=== PATIENT | female | born 1930 | race Caucasian/White ===

== ENCOUNTER 2017-05-05 21:11 | Inpatient (IN) | payer MEDICARE ==
[2017-05-05 21:58] LABS: Bilirubin Negative (Negative); Blood, Urine Negative (Negative); Glucose, Urine (Dipstick) 500 mg/dL (Negative); Ketone, Urine Negative (Negative); Nitrite Negative (Negative); Protein, Urine (Dipstick) 30 mg/dL (Neg-Trace); Urobilinogen 0.2 mg/dL (0.2-1.0)
[2017-05-05 22:01] LABS: Bacteria/HPF None Seen HPF (None Seen); Hyaline Casts/LPF 4-6 HYALINE CAST LPF (0-3 Hyaline); Squamous Epithelial 0-3 HPF (0-3); WBC/HPF 21-50 HPF (0-3)
[2017-05-05 22:09] LABS: #Monocytes 1.8 thou/uL (0.11-0.59); #Neutrophils 12.9 thou/uL (1.40-6.50); %Basophils 0.1 % (0.0-1.0); %Eosinophils 0.3 % (0.0-10.0); %Lymphocytes 6.1 % (21.0-51.0); %Monocytes 11.4 % (0.0-10.0); Hematocrit 41.5 % (36.0-47.0); Mean Platelet Volume 6.5 fL (7.4-10.4); Red Blood Cell (RBC) Count 4.38 mill/uL (4.20-5.40); White Blood Cell (WBC) Count 15.6 thou/uL (4.8-10.8)
[2017-05-05 22:15] LABS: Prothrombin Time 14.6 SEC (12.0-14.7)
--- NOTE | 2017-05-05 22:20 | RAD ---
UPRIGHT PORTABLE CHEST ONE VIEW: History: 86-year-old female with chest pain. Comparison: 02-18-17 FINDINGS: Rotation to the left. Atherosclerosis or the aorta. Loops recorder overlying the left chest. Heart s ize is minimally enlarged. No confluent pneumonia, overt edema, or pleural effusion. IMPRESSION: Stable mild cardiomegaly. No acute process. POS: [facility]
[2017-05-05 22:33] LABS: ALT (SGPT) 29 U/L (8-55); AST (SGOT) 38 U/L (5-34); Alkaline Phosphatase 109 U/L (40-150); Anion Gap 17 mmol/L (10-20); BUN (Urea Nitrogen) 28 mg/dL (9.8-20.1); CK (CPK) 226 U/L (29-168); Calc. Creatinine Clearance 0 mL/min (70-130); Calcium 9.8 mg/dL (7.8-10.44); Carbon Dioxide 22 mmol/L (23-31); Chloride 101 mmol/L (98-107); Estimated GFR-MDRD 54; Globulin 3.9 g/dL (2.4-3.5); Lipase 19 U/L (8-78)
[2017-05-05] MEDS ORDERED: cefTRIAXone\\ROCEPHIN 1 GM VIAL ONE (23:16)
[2017-05-05 23:23] LABS: Lactic Acid - Sepsis 2.8 mmol/L (0.5-2.2)
--- NOTE | 2017-05-05 23:55 | CT ---
BRAIN CT WITHOUT IV CONTRAST: History: 86-year-old female with altered mental status. Comparison: 02-19-17 FINDINGS: Atrophy and chronic white matter ischemic changes are again noted and appear stable. No focal mass o r acute hemorrhage. Sinuses and mastoids are clear. IMPRESSION: Atrophy and chronic white matter ischemic change. No mass or bleed. Stable from prior study. POS: [facility]
[2017-05-06] MEDS ORDERED: Acetaminophen 500 MG TAB ONE (00:13)
[2017-05-06] MEDS ORDERED: cefTRIAXone\\ROCEPHIN 1 GM VIAL ONE (00:13)
[2017-05-06] MEDS ORDERED: Ondansetron HCl/PF 4 MG/2 ML Vial IVP PRN ×3 (01:56→02:36)
[2017-05-06] MEDS ORDERED: Ondansetron ODT 4 MG TAB SL PRN (01:56)
[2017-05-06] MEDS ORDERED: Sodium Chloride 0.9% 1,000 ML IV SCH (02:00)
[2017-05-06] MEDS ORDERED: Loratadine 10 MG TAB PO PRN (02:36)
[2017-05-06] MEDS ORDERED: Calcium Carbonate 500 MG ChewTAB PO PRN (02:36)
[2017-05-06] MEDS ORDERED: Mag-Al 1200 mg/1200 mg/30 ML UDCUP PO PRN (02:36)
[2017-05-06] MEDS ORDERED: hydrALAZINE 20 MG/ML VIAL SLOW IVP PRN (02:36)
[2017-05-06] MEDS ORDERED: Nitroglycerin 0.4 MG TAB (25 Tab Bottle) SL PRN (02:36)
[2017-05-06] MEDS ORDERED: Acetaminophen 325 MG TAB PO PRN ×2 (02:36→18:52)
[2017-05-06] MEDS ORDERED: Benzonatate 100 MG CAP PO PRN (02:36)
[2017-05-06] MEDS ORDERED: Senokot 8.6 MG TAB PO PRN ×2 (02:36)
[2017-05-06] MEDS ORDERED: cloNIDine 0.1 MG TAB PO PRN (02:36)
[2017-05-06] MEDS ORDERED: Diabetic Tussin 200 MG/10 ML UDCUP PO PRN (02:36)
[2017-05-06] MEDS ORDERED: Bisacodyl 5 MG TAB PO PRN ×2 (02:36)
[2017-05-06 02:56] LABS: #Eosinphils 0.1 thou/uL (0.0-0.7); #Lymphocytes 1.2 thou/uL (1.20-3.40); #Monocytes 1.8 thou/uL (0.11-0.59); #Neutrophils 9.5 thou/uL (1.40-6.50); %Basophils 0.2 % (0.0-1.0); %Eosinophils 0.5 % (0.0-10.0); %Lymphocytes 9.8 % (21.0-51.0); Hematocrit 34.2 % (36.0-47.0); Mean Platelet Volume 6.5 fL (7.4-10.4); Red Blood Cell (RBC) Count 3.62 mill/uL (4.20-5.40); White Blood Cell (WBC) Count 12.6 thou/uL (4.8-10.8)
[2017-05-06 03:20] LABS: Anion Gap 12 mmol/L (10-20); BUN (Urea Nitrogen) 22 mg/dL (9.8-20.1); Calc. Creatinine Clearance 0 mL/min (70-130); Calcium 8.7 mg/dL (7.8-10.44); Carbon Dioxide 22 mmol/L (23-31); Chloride 107 mmol/L (98-107); Estimated GFR-MDRD 74
[2017-05-06 03:23] VITALS: BMI 22.4
[2017-05-06] MEDS: Sodium Chloride 0.9% 1,000 ML IV SCH ×2 (03:59→12:15)
--- NOTE | 2017-05-06 06:08 | HP ---
DATE OF ADMISSION: 05/06/2017 PRIMARY CARE PHYSICIAN: Lashanda Alvarado M.D. CHIEF COMPLAINT: Frequent falls, worsening weakness, and confusion. HISTORY OF PRESENT ILLNESS: Ms. Gallegos is a very pleasant 86-year-old female with past medical his tory of frequent falls, cardiac arrhythmia in the form of atrial fibrillation/flutter, dyslipidemia, hypertension, and sacral insufficiency fractures, who presented to the emergency room with the abov e-mentioned complaint. History is mainly obtained by the patient herself who is a poor historian gi jeremiah the confusion. No family is available at the bedside at this time. The case was discussed with the admitting ER physician in detail and electronic medical records have been reviewed. The patien jania was last admitted to our facility in 02/2017 for repeated falls and was found to have non-ST eleva tion IN. At that time, she underwent a cardiac catheterization which did not show significant coron gertrudis artery disease. She had an echocardiogram done, which showed improvement in her ejection fracti on from 25% to 55%. She was found to have atrial flutter at that time and consideration was given o n LifeVest/AICD/amiodarone. It is unclear as to what was the follow up for that. Nevertheless, the patient was brought into the emergency room today by her family. They reported in creased confusion beginning last Saturday. The patient was prescribed ciprofloxacin Saturday night and was started on Macrobid yesterday, but she became more confused and weak. No focal deficits were no ticed. She has also been falling more and more frequently with reported 4 falls in the last 5 days. She lives in the independent facility at [facility] as per the patient. Her most recent fall was approximately 1745 hours last evening. Upon presentation, her blood pressure was 120/61 with a pulse of 85 and oxygen saturation 95% on nereida m air. A 12-lead EKG shows normal sinus rhythm at 89 beats per minute with nonspecific ST segment a nd T-wave abnormality. Lumbar spinal CT showed fracture of the L3 transverse process and body and b ilateral sacral insufficiency fractures. Extensive fracture of right and left sacral ala also notic ed likely insufficiency fractures. Her CT scan of the brain was unremarkable. There is no hemorrha ge or acute infarction and her chest x-ray did not have any infiltrate or pulmonary edema. Further workup included a blood work which showed WBCs at 15.6, with lactic acid of 2.8 and creatinine kinas e of 226. Cardiac enzymes are unremarkable. Her urinalysis shows wbc's and leukocyte esterase. Mitali roldan was prescribed vancomycin and Rocephin for possible sepsis and UTI and is now being admitted to te lemetry unit for further evaluation. PAST MEDICAL HISTORY: 1. Frequent falls. 2. Dyslipidemia. 3. Hypertension. 4. History of nonischemic cardiomyopathy with improved cardiac function on the echo done in 02/2017 . 5. History of cardiac arrhythmia. 6. Coronary artery disease. PAST SURGICAL HISTORY: Hysterectomy. SOCIAL HISTORY: No history of drug, tobacco, or alcohol abuse. The patient is a retired nurse. Jessica roldan patient's daughter is an ER physician in [place]. She lives in the independent facility [facility]. ALLERGIES: Include LATEX, MEPERIDINE, and SULFONAMIDES. FAMILY HISTORY: Mom had hypertension, in her 90s and father of colon cancer at 86. CURRENT MEDICATIONS: As per the ER record and these further need to be confirmed. The patient take s lisinopril 5 mg b.i.d. and Coreg 6.25 mg b.i.d. PHYSICAL EXAMINATION: VITAL SIGNS: Most recent vital signs include blood pressure 183/74, pulse of 100, respirations 16, temperature 98.6, saturating 96% on room air. GENERAL: Lying comfortably in bed, no acute distress, awake, alert, oriented at least to self and p lace. HEENT: Mucous membrane is slightly dry. No oropharyngeal exudate or erythema. Head is normocephal ic, atraumatic. Pupils are equal, reactive to light and accommodation. Extraocular movements are i ntact. NECK: Supple without any lymphadenopathy, JVD, or bruit. CHEST: Clear to auscultation without any wheezing, rales, or rhonchi. CARDIOVASCULAR: Rate and rhythm is regular without any murmur, rubs, or gallops. ABDOMEN: Soft, nontender, nondistended with positive bowel sounds. EXTREMITIES: Free of any cyanosis, clubbing, or edema. NEUROLOGIC: Largely nonfocal. The patient appears somewhat confused and answers tangentially and h as to be redirected. Otherwise, no focal neurological deficits. SKIN: Shows abrasion in the lumbar spinal region. VASCULAR: +2 pedal pulses bilaterally. SKIN: Free of any rashes or bruises. Feels warm and dry to touch. PSYCHIATRIC: Normal affect. LABORATORY DATA AND X-FINDINGS: A 12-lead EKG by my review as per HPI. Lumbar spinal CT showed chr onic fractures in L3 as well as a sacral ala. Chest x-ray by my review has no pulmonary effusion, e estuardo, or infiltrate. CBC shows WBCs of 15.6 with 82% neutrophils, otherwise, unremarkable. Serum c hemistries show bicarbonate 22, BUN 29, creatinine 0.98, glucose 193, lactic acid 2.8, AST 38, creat inine kinase 226, and otherwise, unremarkable. Cardiac enzyme is normal. Urinalysis shows 21 to 50 wbc's and small leukocyte esterase. IMPRESSION AND PLAN: 1. Urinary tract infection. The patient will be treated with broad-spectrum IV antibiotics until s epsis is ruled out. Urine culture and blood cultures have been sent. We will repeat lactic acid an d labs in the morning. Continue with IV fluids as the patient appears somewhat dehydrated. 2. Frequent falls. We will have occupational therapy and physical therapy to evaluate the patient. The exact etiology is unclear, but the patient reports that they normally happen when she is not a ble to open her walker at the bedside in time. 3. History of coronary artery disease. At this time, we will continue her DULCE inhibitor as well as beta-karina. She will continue to follow with her primary clock repairer, Dr. Friend, as an outpa tient. 4. Hypertension. Resume her home medications, monitor blood pressure and heart rate closely. 5. Dyslipidemia. Continue home medications. 6. CODE STATUS: Unknown. At this time, the patient is not able to provide me with a firm answer, this further needs to be addressed in the morning. 7. History of ischemic cardiomyopathy with recovery of cardiac function on most recent echocardiogr am. 8. Add p.r.n. medication order. 9. Deep venous thrombosis and gastrointestinal prophylaxis. The patient is currently being admitted to the telemetry unit for urinary tract infection and rule o ut sepsis. Further management will depend upon her clinical course. Estimated length of stay at [facility] 2 to 3 midnights.
--- NOTE | 2017-05-06 07:12 | CT ---
LUMBAR SPINE CT SCAN WITHOUT IV CONTRAST: Date: 05/05/17 HISTORY: 86-year-old female with low back pain following an injury. FINDINGS: There is very markedly severe bony demineralization. There appears to be a fracture of the left L3 t ransverse process. There is also a minimally displaced horizontal fracture through the L3 vertebral body. This could possibly extend into the left pedicle. There is also vertical height loss of the L2 vertebral body which has a more indeterminate appearance as far as age and could be acute, although could possibly be old. There is severe disc osteophytosis and facet arthrosis, particularly of the lower lumbar spine, with variable severity central canal, lateral recess, and foraminal stenosis, pa rticularly at L3-L4 and L4-L5. There are bilateral sacral fractures which have the appearance of ins ufficiency type fractures, although these do appear to be somewhat displaced. IMPRESSION: Horizontal moderately displaced fracture through the superior aspect of the L3 vertebral body, possi ju extending into the left pedicle with a nondisplaced fracture of the left L3 transverse process. This could possibly represent a partial chance-type fracture. Extensive comminuted fractures of both right and left sacral ala with some displacement, possibly related to severe insufficiency type fra ctures. Vertical height loss of the L2 vertebral body consistent with mild compression fracture, age -indeterminate. Severe spondylosis with up to severe central canal, lateral recess, and foraminal st enosis. POS: [facility]
[2017-05-06] MEDS ORDERED: FLU VACC TS2017-18 (>65YR) 0.5 ML SYRINGE IM ONE (09:00)
[2017-05-06] MEDS ORDERED: Famotidine 20 MG TAB PO SCH (09:00)
[2017-05-06] MEDS: traMADol HCl 50 MG TAB PO PRN ×2 (09:12→20:59)
[2017-05-06] MEDS: Famotidine 20 MG TAB PO SCH (09:13)
[2017-05-06] MEDS: Enoxaparin Sodium 40 MG/0.4 ML SYRINGE SC SCH (09:13)
--- NOTE | 2017-05-06 11:47 | CON ---
DATE OF CONSULTATION: 05/06/2017 HISTORY OF PRESENT ILLNESS: The patient is an 86-year-old female with a past medical history of frequent falls, hypertension, hyperlipidemia, cardiomyopathy, cardiac arrhythmia, coronary artery disease who presented to the emergency department for additional falls and confusion. She was complaining of back pain at that time, therefore CT of the lumbar spine was done. CT of the lumbar spine revealed an L2 compression deformity, also an L3 vertebral body fracture which extends into the left pedicle and bilateral sacral insufficiency fractures. These fractures all appeared to be age indeterminate on the CT; however, the patient does have new and worsening back pain. Her further medical workup also revealed a urinary tract infection and the patient was admitted to the Medicine Service for further management of this condition and the Neurosurgery Service was consulted for evaluation of her vertebral fractures. I am seeing the patient at this time, she has no pain at this time. She denies leg weakness, numbness, tingling, or bowel or bladder dysfunction. PAST MEDICAL HISTORY: Frequent falls, hypertension, hyperlipidemia, cardiomyopathy, cardiac arrhythmia, coronary artery disease. PAST SURGICAL HISTORY: Hysterectomy. SOCIAL HISTORY: The patient does not smoke, drink or use any drugs. She lives at [facility]. ALLERGIES: The patient's allergies include LATEX, MEPERIDINE, SULFONAMIDES. FAMILY HISTORY: Family history of hypertension. PHYSICAL EXAMINATION: GENERAL: The patient is sitting comfortably in the bed in no acute distress. HEAD: Normocephalic, atraumatic. EYES: PERRLA. Extraocular movements intact. Sclerae white. ENT: Oral mucosa moist, pink, intact. NECK: Nontender to palpation. Free active range of motion, no meningismus or nuchal rigidity. CARDIOVASCULAR: Regular rate and rhythm. LUNGS: The patient is breathing comfortably. No evidence dyspnea, symmetric chest expansion. MUSCULOSKELETAL: The patient has good muscle tone in the bilateral upper and lower extremities, active range of motion of bilateral upper and lower extremities. NEUROLOGIC: The patient is slightly confused. She is off of topic when answering my questions. No reflex asymmetry. Negative Marks's, negative clonus. ASSESSMENT: Multiple falls with L2 compression fracture, L3 vertebral body fracture extending into the left pedicle and bilateral sacral insufficiency fractures. PLAN: Our plan will be to order a TLSO brace. Given the patient's age and comorbidities, conservative management appears to be the best option at this time. I do not suspect any neurosurgical intervention. We will plan to follow up with the patient in 4 weeks with a repeat set of x-rays at that time. I have discussed this plan with the family who is amenable to this plan. I have also discussed the patient's presentation, exam and imaging with Dr. Gresham and he also is in agreement with this plan. The patient is to wear the TLSO brace for any out of bed activities. It can be taken off briefly to shower. Please reach out to Neurosurgery Service for additional questions or concerns. ARIANA
[2017-05-06] MEDS ORDERED: diphenhydrAMINE 12.5 MG/5 ML UDCUP PO PRN (18:53)
[2017-05-06] MEDS: Melatonin 3 MG TAB PO SCH (20:26)
[2017-05-07] MEDS: Sodium Chloride 0.9% 1,000 ML IV SCH ×3 (00:24→20:37)
[2017-05-07] MEDS: Vancomycin HCl 750 MG in Sodium Chloride 0.9% 250 ML 250 ML IVPB SCH (00:24)
[2017-05-07] MEDS: Carvedilol 6.25 MG TAB PO SCH ×2 (08:30→17:21)
[2017-05-07] MEDS: Aspirin 81 mg Enteric Coated Tablet PO SCH (08:30)
[2017-05-07] MEDS: Ubidecarenone 50 MG CAP PO SCH (08:30)
[2017-05-07] MEDS: Famotidine 20 MG TAB PO SCH (08:30)
[2017-05-07] MEDS: Enoxaparin Sodium 40 MG/0.4 ML SYRINGE SC SCH (08:30)
[2017-05-07] MEDS ORDERED: cefTRIAXone\\ROCEPHIN 1 GM in Sodium Chloride 0.9% 100 ML IVPB SCH (09:00)
[2017-05-07] MEDS: cefTRIAXone\\ROCEPHIN 1 GM, Syringe 0.4 ML in Sterile Water 9.6 ML SLOW IVP SCH (09:46)
[2017-05-07] MEDS: Lisinopril 2.5 MG TAB PO SCH (12:03)
--- NOTE | 2017-05-07 15:30 | PDOC.PN ---
- Subjective Encounter Start Date: 05/07/17 Encounter Start Time: 09:00 Pt seen for followup re: UTI. Denies chest pain, shortness of breath, fevers or chills. No nausea or vomiting. No fevers or chills. - Objective MAR Reviewed: Yes Vital Signs & Weight: Vital Signs (12 hours) Temp Pulse Resp BP BP BP BP 05/07/17 14:17 178/86 H 05/07/17 12:05 97.5 F L 91 16 188/94 H 05/07/17 12:03 86 188/94 H 05/07/17 09:07 175/92 H 178/95 H 05/07/17 08:00 98.2 F 97 16 05/07/17 07:37 98.2 F 97 16 176/94 H 05/07/17 04:00 98.6 F 106 H 26 H 174/87 H Pulse Ox 05/07/17 14:17 05/07/17 12:05 96 05/07/17 12:03 05/07/17 09:07 05/07/17 08:00 93 L 05/07/17 07:37 93 L 05/07/17 04:00 96 Weight Weight 126 lb I&O: 05/06/17 05/07/17 05/08/17 06:59 06:59 06:59 Intake Total 1335 3797 Output Total 600 1250 Balance 735 4697 Result Diagrams: 05/06/17 02:48 05/06/17 02:48 EKG Reviewed by me: Yes (Tele: NSR) Phys Exam - Physical Examination Constitutional: NAD HEENT: PERRLA, moist MMs, sclera anicteric, 2+ tonsils Neck: no nodes, no JVD, supple, full ROM Respiratory: no wheezing, no rales, no rhonchi, clear to auscultation bilateral Cardiovascular: RRR, no rub Gastrointestinal: soft, non-tender, no distention, positive bowel sounds Musculoskeletal: pulses present Neurological: moves all 4 limbs Lymphatic: no nodes Psychiatric: normal affect, A&O x 3 Skin: no rash, normal turgor, cap refill <2 seconds Dx/Plan (1) UTI (urinary tract infection) Status: Acute (2) Vertebral compression fracture Code(s): M48.50XA - COLLAPSED VERTEBRA, NEC, SITE UNSP, INIT Status: Acute (3) Dyslipidemia Code(s): E78.5 - HYPERLIPIDEMIA, UNSPECIFIED Status: Chronic (4) HTN (hypertension) Code(s): I10 - ESSENTIAL (PRIMARY) HYPERTENSION Status: Chronic Qualifiers: - Plan continue antibiotics, PT/OT, out of bed/ambulate * . discontinue levofloxacin, start ceftriaxone , await cultures (blood and urine). Appreciate neurosurgery input, pt is wearing TLSO brace. Monitor vital signs, titrate antihypertensives as needed. Ambulate pt. Review of Systems - Review of Systems Constitutional: negative: Fever, Chills, Sweats, Weakness, Malaise Respiratory: negative: Cough, Dry, Shortness of Breath, Hemoptysis, SOB with Excertion, Pleuritic Pain, Sputum, Wheezing Cardiovascular: negative: Chest Pain, Palpitations, Orthopnea, Paroxysmal Noc. Dyspnea, Edema, Light Headedness Gastrointestinal: negative: Nausea, Vomiting, Abdominal Pain, Diarrhea, Constipation, Melena, Hematochezia Genitourinary: negative: Dysuria, Frequency, Incontinence, Hematuria, Retention - Medications/Allergies Allergies/Adverse Reactions: Allergies Allergy/AdvReac Type Severity Reaction Status Date / Time latex Allergy Verified 05/06/17 01:43 meperidine [From Demerol] Allergy Verified 05/06/17 01:43 Sulfa (Sulfonamide Allergy Verified 05/06/17 01:43 Antibiotics) Medications: Current Medications Acetaminophen (Tylenol) 650 mg PO Q4H PRN PRN Reason: Headache/Fever or Pain Acetaminophen (Tylenol) 325 mg PO HSPRN PRN PRN Reason: Pain Al Hydroxide/Mg Hydroxide (Maalox) 30 ml PO Q6H PRN PRN Reason: Heartburn or Indigestion Aspirin (Ecotrin) 81 mg PO DAILY [facility] Last Admin: 05/07/17 08:30 Dose: 81 mg Benzonatate (Tessalon) 100 mg PO Q4H PRN PRN Reason: Cough Bisacodyl (Dulcolax) 10 mg PO DAILYPRN PRN PRN Reason: Constipation Calcium Carbonate (Tums) 1,000 mg PO Q4H PRN PRN Reason: Heartburn or Indigestion Carvedilol (Coreg) 6.25 mg PO BID-[facility] Last Admin: 05/07/17 08:30 Dose: 6.25 mg Clonidine (Catapres) 0.1 mg PO Q4H PRN PRN Reason: Systolic BP > 160 Last Admin: 05/07/17 14:17 Dose: 0.1 mg Coenzyme Q10 (Coenzyme Q10) 100 mg PO DAILY [facility] Last Admin: 05/07/17 08:30 Dose: 100 mg Diphenhydramine HCl (Benadryl) 12.5 mg PO HSPRN PRN PRN Reason: Pain Enoxaparin Sodium (Lovenox) 40 mg SC 0900 [facility] Last Admin: 05/07/17 08:30 Dose: 40 mg Famotidine (Pepcid) 20 mg PO DAILY [facility] Last Admin: 05/07/17 08:30 Dose: 20 mg Guaifenesin (Robitussin Sf) 200 mg PO Q4H PRN PRN Reason: Cough Hydralazine HCl (Apresoline) 10 mg SLOW IVP Q4H PRN PRN Reason: Systolic BP > 170 Sodium Chloride (Normal Saline 0.9%) 1,000 mls @ 100 mls/hr IV .Q10H [facility] Last Admin: 05/07/17 08:30 Dose: 1,000 mls Vancomycin HCl 750 mg/ Sodium (Chloride) 250 mls @ 200 mls/hr IVPB 0030 [facility] Last Admin: 05/07/17 00:24 Dose: 250 mls Ceftriaxone Sodium 1 gm/ (Syringe 0.4 ml/ Sterile Water) 10 mls @ 120 mls/hr SLOW IVP 1000 [facility] Last Admin: 05/07/17 09:46 Dose: 10 mls Lisinopril (Zestril) 5 mg PO 1200 [facility] Last Admin: 05/07/17 12:03 Dose: 5 mg Loratadine (Claritin) 10 mg PO DAILYPRN PRN PRN Reason: Sinus Symptoms Melatonin (Melatonin) 1.5 mg PO HS [facility] Last Admin: 05/06/17 20:26 Dose: 1.5 mg Nitroglycerin (Nitrostat) 0.4 mg SL Q5MIN PRN PRN Reason: Chest Pain Ondansetron HCl (Zofran) 4 mg IVP Q6H PRN PRN Reason: Nausea/Vomiting Senna (Senokot) 2 tab PO HSPRN PRN PRN Reason: Constipation Sodium Chloride (Flush - Normal Saline) 10 ml IVF Q12HR [facility] Sodium Chloride (Flush - Normal Saline) 10 ml IVF PRN PRN PRN Reason: Saline Flush Tramadol HCl (Ultram) 50 mg PO Q4H PRN PRN Reason: Moderate Pain (4-6) Last Admin: 05/06/17 20:59 Dose: 50 mg
[2017-05-07] MEDS: traMADol HCl 50 MG TAB PO PRN (20:35)
[2017-05-07] MEDS: Melatonin 3 MG TAB PO SCH (20:35)
[2017-05-07 23:58] LABS: Vancomycin, Trough 5.3 ug/mL
[2017-05-08] MEDS: Vancomycin HCl 750 MG in Sodium Chloride 0.9% 250 ML 250 ML IVPB SCH (00:28)
[2017-05-08] MEDS: Sodium Chloride 0.9% 1,000 ML IV SCH (05:33)
[2017-05-08 07:58] LABS: #Eosinphils 0.3 thou/uL (0.0-0.7); #Lymphocytes 0.9 thou/uL (1.20-3.40); #Monocytes 0.9 thou/uL (0.11-0.59); #Neutrophils 5.4 thou/uL (1.40-6.50); %Eosinophils 3.5 % (0.0-10.0); %Lymphocytes 11.8 % (21.0-51.0); %Monocytes 12.3 % (0.0-10.0); Hematocrit 36.4 % (36.0-47.0); Mean Platelet Volume 6.1 fL (7.4-10.4); Red Blood Cell (RBC) Count 3.83 mill/uL (4.20-5.40); White Blood Cell (WBC) Count 7.5 thou/uL (4.8-10.8)
[2017-05-08 08:15] LABS: Anion Gap 11 mmol/L (10-20); BUN (Urea Nitrogen) 9 mg/dL (9.8-20.1); Calc. Creatinine Clearance 55 mL/min (70-130); Calcium 9.2 mg/dL (7.8-10.44); Carbon Dioxide 23 mmol/L (23-31); Chloride 102 mmol/L (98-107); Estimated GFR-MDRD 85
[2017-05-08] MEDS: Ubidecarenone 50 MG CAP PO SCH (08:23)
[2017-05-08] MEDS: Aspirin 81 mg Enteric Coated Tablet PO SCH (08:23)
[2017-05-08] MEDS: Famotidine 20 MG TAB PO SCH (08:23)
[2017-05-08] MEDS: Carvedilol 6.25 MG TAB PO SCH (08:24)
[2017-05-08] MEDS: traMADol HCl 50 MG TAB PO PRN (08:24)
[2017-05-08] MEDS: Enoxaparin Sodium 40 MG/0.4 ML SYRINGE SC SCH (08:26)
--- NOTE | 2017-05-08 10:10 | PDOC.PN ---
- Subjective Encounter Start Date: 05/08/17 Encounter Start Time: 07:20 Pt seen for followup re: encephalopathy. Denies chest pain, shortness fo breath , fevers or chills. No nausea or vomiting. - Objective Resuscitation Status: Resuscitation Status DNR:Do Not Resuscitate MAR Reviewed: Yes Vital Signs & Weight: Vital Signs (12 hours) Temp Pulse Resp BP BP BP Pulse Ox 05/08/17 09:35 136/71 05/08/17 08:24 201/91 H 05/08/17 08:00 98.4 F 80 18 201/91 H 94 L 05/08/17 04:00 98.3 F 76 20 165/87 H 93 L Weight Weight 128 lb I&O: 05/07/17 05/08/17 05/09/17 06:59 06:59 06:59 Intake Total 3797 2980 Output Total 1250 1300 Balance 2547 1680 Result Diagrams: 05/08/17 07:49 05/08/17 07:49 EKG Reviewed by me: Yes (Tele: NSR) Phys Exam - Physical Examination Constitutional: NAD HEENT: PERRLA, moist MMs, sclera anicteric, 2+ tonsils Neck: no nodes, no JVD, supple, full ROM Respiratory: no wheezing, no rales, no rhonchi, clear to auscultation bilateral Cardiovascular: RRR, no rub Gastrointestinal: soft, non-tender, no distention, positive bowel sounds Musculoskeletal: pulses present Neurological: moves all 4 limbs Psychiatric: normal affect, A&O x 3 Skin: no rash, normal turgor Dx/Plan (1) Encephalopathy acute Code(s): G93.40 - ENCEPHALOPATHY, UNSPECIFIED Status: Acute (2) Hypokalemia Code(s): E87.6 - HYPOKALEMIA Status: Acute (3) Vertebral compression fracture Code(s): M48.50XA - COLLAPSED VERTEBRA, NEC, SITE UNSP, INIT Status: Acute (4) Dyslipidemia Code(s): E78.5 - HYPERLIPIDEMIA, UNSPECIFIED Status: Chronic (5) HTN (hypertension) Code(s): I10 - ESSENTIAL (PRIMARY) HYPERTENSION Status: Chronic Qualifiers: (6) UTI (urinary tract infection) Status: Ruled-out - Plan PT/OT, out of bed/ambulate * . Urine culture negative, final blood cultures pending. Disontinue antibiotics. Leucocytosis resolved. D/w daughter over phone yesterday, updated her. Pt had gradual decline over last few weeks. Replace potassium. Review of Systems - Review of Systems Respiratory: negative: Cough, Dry, Shortness of Breath, Hemoptysis, SOB with Excertion, Pleuritic Pain, Sputum, Wheezing Cardiovascular: negative: Chest Pain, Palpitations, Orthopnea, Paroxysmal Noc. Dyspnea, Edema, Light Headedness Gastrointestinal: negative: Nausea, Vomiting, Abdominal Pain, Diarrhea, Constipation, Melena, Hematochezia Skin: negative: Rash, Lesions, Tavares, Bruising Neurological: negative: Weakness, Numbness, Incoordination, Change in Speech, Confusion, Seizures - Medications/Allergies Allergies/Adverse Reactions: Allergies Allergy/AdvReac Type Severity Reaction Status Date / Time latex Allergy Verified 05/06/17 01:43 meperidine [From Demerol] Allergy Verified 05/06/17 01:43 Sulfa (Sulfonamide Allergy Verified 05/06/17 01:43 Antibiotics) Medications: Current Medications Acetaminophen (Tylenol) 650 mg PO Q4H PRN PRN Reason: Headache/Fever or Pain Acetaminophen (Tylenol) 325 mg PO HSPRN PRN PRN Reason: Pain Al Hydroxide/Mg Hydroxide (Maalox) 30 ml PO Q6H PRN PRN Reason: Heartburn or Indigestion Aspirin (Ecotrin) 81 mg PO DAILY [facility] Last Admin: 05/08/17 08:23 Dose: 81 mg Benzonatate (Tessalon) 100 mg PO Q4H PRN PRN Reason: Cough Bisacodyl (Dulcolax) 10 mg PO DAILYPRN PRN PRN Reason: Constipation Calcium Carbonate (Tums) 1,000 mg PO Q4H PRN PRN Reason: Heartburn or Indigestion Carvedilol (Coreg) 6.25 mg PO BID-[facility] Last Admin: 05/08/17 08:24 Dose: 6.25 mg Clonidine (Catapres) 0.1 mg PO Q4H PRN PRN Reason: Systolic BP > 160 Last Admin: 05/07/17 14:17 Dose: 0.1 mg Coenzyme Q10 (Coenzyme Q10) 100 mg PO DAILY [facility] Last Admin: 05/08/17 08:23 Dose: 100 mg Diphenhydramine HCl (Benadryl) 12.5 mg PO HSPRN PRN PRN Reason: Pain Enoxaparin Sodium (Lovenox) 40 mg SC 0900 [facility] Last Admin: 05/08/17 08:26 Dose: 40 mg Famotidine (Pepcid) 20 mg PO DAILY [facility] Last Admin: 05/08/17 08:23 Dose: 20 mg Guaifenesin (Robitussin Sf) 200 mg PO Q4H PRN PRN Reason: Cough Hydralazine HCl (Apresoline) 10 mg SLOW IVP Q4H PRN PRN Reason: Systolic BP > 170 Last Admin: 05/07/17 17:21 Dose: 10 mg Sodium Chloride (Normal Saline 0.9%) 1,000 mls @ 100 mls/hr IV .Q10H [facility] Last Admin: 05/08/17 05:33 Dose: 1,000 mls Ceftriaxone Sodium 1 gm/ (Syringe 0.4 ml/ Sterile Water) 10 mls @ 120 mls/hr SLOW IVP 1000 [facility] Last Admin: 05/07/17 09:46 Dose: 10 mls Vancomycin HCl 750 mg/ Sodium (Chloride) 250 mls @ 200 mls/hr IVPB 1200,2359 [facility] Lisinopril (Zestril) 5 mg PO 1200 [facility] Last Admin: 05/07/17 12:03 Dose: 5 mg Loratadine (Claritin) 10 mg PO DAILYPRN PRN PRN Reason: Sinus Symptoms Melatonin (Melatonin) 1.5 mg PO HS [facility] Last Admin: 05/07/17 20:35 Dose: 1.5 mg Nitroglycerin (Nitrostat) 0.4 mg SL Q5MIN PRN PRN Reason: Chest Pain Ondansetron HCl (Zofran) 4 mg IVP Q6H PRN PRN Reason: Nausea/Vomiting Senna (Senokot) 2 tab PO HSPRN PRN PRN Reason: Constipation Sodium Chloride (Flush - Normal Saline) 10 ml IVF Q12HR [facility] Last Admin: 05/08/17 08:25 Dose: Not Given Sodium Chloride (Flush - Normal Saline) 10 ml IVF PRN PRN PRN Reason: Saline Flush Tramadol HCl (Ultram) 50 mg PO Q4H PRN PRN Reason: Moderate Pain (4-6) Last Admin: 05/08/17 08:24 Dose: 50 mg
[2017-05-08] MEDS ORDERED: Potassium Chloride 20 MEQ TAB PO SCH (10:15)
[2017-05-08] MEDS: cefTRIAXone\\ROCEPHIN 1 GM, Syringe 0.4 ML in Sterile Water 9.6 ML SLOW IVP SCH (10:43)
[2017-05-08] MEDS ORDERED: Vancomycin HCl 750 MG in Sodium Chloride 0.9% 250 ML 250 ML IVPB SCH (12:00)
[2017-05-08] MEDS: Lisinopril 2.5 MG TAB PO SCH (12:02)
[2017-05-08 12:03] VITALS: BP 173/87
[2017-05-08 16:06] VITALS: TEMP 98.6
--- NOTE | 2017-05-09 00:45 | DS ---
PRIMARY CARE PHYSICIAN: Lashanda Alvarado M.D. DATE OF ADMISSION: 05/06/2017 DATE OF : The patient on 05/08/2017 DISCHARGE DIAGNOSES: 1. Suspected aspiration. 2. Physical deconditioning. 3. Acute encephalopathy. 4. Hypokalemia. 5. Vertebral compression fractures. HOSPITAL COURSE: Ms. Gallegos was a pleasant 86-year-old lady who was admitted to [facility] on 05/06/2017 for urinary tract infection, frequent falls. She was started on intra venous antibiotics. Urine cultures were negative. Preliminary blood cultures were negative as well . She also had low potassium during this hospitalization, which was replaced. While she was alert and oriented x3, she also had episodes of confusion. Because of history of freq uent falls, physical, and occupational therapy services were consulted and rehab screen was ordered. On the morning of 05/08/2017, she had a cough. She was subsequently doing fine. That afternoon, cleo roldan was becoming bradycardic on the patient monitor. When staff went to see her, she was unresponsi ve and not breathing. Her DNR code status was confirmed with her . The patient did not shaylee shilpa and peacefully, likely from suspected aspiration. Many thanks for allowing me to participate in your patient's care. Please feel free to contact me w ith any questions or concerns.
--- NOTE | 2017-05-11 16:01 | EKG ---
Test Reason : Blood Pressure : / mmHG Vent. Rate : 089 BPM Atrial Rate : 089 BPM P-R Int : 190 ms QRS Dur : 084 ms QT Int : 382 ms P-R-T Axes : 050 -16 089 degrees QTc Int : 464 ms Normal sinus rhythm Possible Left atrial enlargement Left ventricular hypertrophy Nonspecific ST and T wave abnormality Left axis deviation Abnormal ECG Confirmed by RASHID BATES, SAY Amato ([id number]), photo editor MARTIN THOMAS ([id number]) on 05/11/2017 4:01:05 PM Referred By: Confirmed By:SAY MIKE MD
== END 2017-05-08 18:07 | disposition expired | DRG 71 ==
LOC: ERS 21:11 → 2NO 05-06 00:27
PROVIDERS: ADMIT Internal Medicine; ATTEND Internal Medicine
DX: G93.40 Encephalopathy, unspecified (principal); S32.039A Unspecified fracture of third lumbar vertebra, initial encounter for closed fracture; I42.9 Cardiomyopathy, unspecified; S32.10XA Unspecified fracture of sacrum, initial encounter for closed fracture; I48.2 Chronic atrial fibrillation; T17.918A Gastric contents in respiratory tract, part unspecified causing other injury, initial encounter; I10 Essential (primary) hypertension; Z91.81 History of falling; E78.5 Hyperlipidemia, unspecified; I25.2 Old myocardial infarction; I25.10 Atherosclerotic heart disease of native coronary artery without angina pectoris; Z88.2 Allergy status to sulfonamides; Z88.8 Allergy status to other drugs, medicaments and biological substances; Z91.040 Latex allergy status; E87.6 Hypokalemia; Z66 Do not resuscitate; I46.9 Cardiac arrest, cause unspecified
CPT/HCPCS: 36415; 70450; 71010; 72131; 80048; 80053; 80202; 81001; 81003; 81015; 82550; 82553; 83605; 83690; 84443; 84484; 85025; 85610; 85730; 87040; 87077; 87086; 87186; 93005; 96361; 96365; 96375; A4216; G8978-GP-CJ; G8979-GP-CI; G8987-GO-CK; G8988-GO-CI; J0360; J0696; J1650; J1956; J3370; J7050